=== PATIENT | female | born 1990 ===

== ENCOUNTER 2017-06-12 12:16 | Emergency (ER) | payer SELFPAY ==
[2017-06-12 12:36] VITALS: TEMP 98.5
--- NOTE | 2017-06-12 13:03 | C.PDOC ---
History Of Present Illness 27yo female, presents to ED for evaluation of non-productive cough with associated fever ( TM measurement of 38 C), right sided pleuritic pain for the past 4 days. Patient denies a history of asthma or smoking. She denies any shortness of breath, dyspnea upon exertion. She denies any other associated symptoms. 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 DENIES HO ASTHMA, SMOKING. NO SOB, SALINAS. NO OTHER ASSOC SX EXAM MILD DIST NONTOXIC HEENT NEG LUNGS OCC EXP WHEEZE R MID LUNG NO RHONCHI, RALES. NO TACHYPNEA, RETRACTIONS REMAINDER NEG Time Seen by Provider: 06/12/17 12:43 Chief Complaint (Nursing): Flu-like Symptoms History Per: Patient History/Exam Limitations: no limitations Onset/Duration Of Symptoms: Days (4) Current Symptoms Are (Timing): Still Present Associated Symptoms: Cough. denies: Sputum Past Medical History Reviewed: Historical Data, Nursing Documentation, Vital Signs Vital Signs: Last Vital Signs Temp 98.5 F 06/12/17 12:32 Pulse 102 H 06/12/17 12:32 Resp 18 06/12/17 12:32 BP 119/78 06/12/17 12:32 Pulse Ox 98 06/12/17 13:04 - Medical History PMH: No Chronic Diseases Denies: Asthma Surgical History: No Surg Hx Family History: States: No Known Family Hx - Social History Hx Alcohol Use: No Hx Substance Use: No - Immunization History Hx Tetanus Toxoid Vaccination: No Hx Influenza Vaccination: No Hx Pneumococcal Vaccination: No Review Of Systems Except As Marked, All Systems Reviewed And Found Negative. Constitutional: Negative for: Fever, Chills Respiratory: Positive for: Cough, Other (right sided pleuritic pain). Negative for: Shortness of Breath, SOB with Excertion, Sputum Physical Exam - Physical Exam Appears: Other (mild distress) Skin: Normal Color Head: Atraumatic, Normacephalic Eye(s): bilateral: Normal Inspection Ear(s): Bilateral: Normal Nose: Normal Oral Mucosa: Moist Neck: Supple Cardiovascular: Rhythm Regular Respiratory: No Rales, No Rhonchi, Wheezing (occasional expitory wheezing right mid lung), Other (no tachypnea or retractions noted) Gastrointestinal/Abdominal: Normal Exam Neurological/Psych: Oriented x3, Normal Speech, Normal Cognition ED Course And Treatment O2 Sat by Pulse Oximetry: 98 Pulse Ox Interpretation: Normal - Radiology CXR: Interpreted by Me CXR Interpretation: Yes: Infiltrates (?R PERIHIL) Disposition Counseled Patient/Family Regarding: Studies Performed, Diagnosis, Need For Followup, Rx Given - Disposition Referrals: [facility] [Outside] [facility] [Outside] Disposition: HOME/ ROUTINE Disposition Time: 13:03 Condition: GOOD Prescriptions: Azithromycin 250 mg PO DAILY #6 tab Benzonatate [Tessalon Perles] 200 mg PO TID PRN #15 sgl PRN Reason: Cough Ibuprofen [Motrin] 600 mg PO Q6 #30 tab Instructions: Acute Bronchitis (ED) Forms: [employer] Connect (Azeri), Work Excuse Print Language: MAORI - Clinical Impression Clinical Impression: Bronchitis - Scribe Statement The provider has reviewed the documentation as recorded by the Sekou Rose Provider Attestation: All medical record entries made by the Sekou were at my direction and personally dictated by me. I have reviewed the chart and agree that the record accurately reflects my personal performance of the history, physical exam, medical decision making, and the department course for this patient. I have also personally directed, reviewed, and agree with the discharge instructions and disposition.
--- NOTE | 2017-06-12 13:04 | RAD ---
HISTORY: COUGH COMPARISON: No prior. TECHNIQUE: Chest PA and lateral FINDINGS: LUNGS: Medial right lower lobe infiltrate or atelectasis. Right perihilar prominence. Please note that chest x-ray has limited sensitivity for the detection of pulmonary masses. PLEURA: No significant pleural effusion identified. No definite pneumothorax . CARDIOVASCULAR: The cardiomediastinal silhouette appears within normal limits of size. OSSEOUS STRUCTURES: No acute osseous abnormality identified. VISUALIZED UPPER ABDOMEN: Unremarkable. OTHER FINDINGS: None. IMPRESSION: Medial right lower lobe infiltrate or atelectasis. Right perihilar prominence. Correlate clinically. Recommend follow-up chest x-ray on resolution of treatment for acute symptoms.
[2017-06-12 13:22] VITALS: BP 110/70; PULSE 89; RESP 20; O2SAT 99
== END 2017-06-12 13:23 | disposition home or self-care (01) ==
LOC: C.ER 12:16
DX: J40 Bronchitis, not specified as acute or chronic (principal)

== ENCOUNTER 2018-02-05 16:32 | Emergency (ER) | payer MEDICAID, OTHER ==
[2018-02-05 16:49] VITALS: BMI 23.1
[2018-02-05 16:56] VITALS: BP 105/70; PULSE 89; TEMP 99; O2SAT 100
[2018-02-05] MEDS ORDERED: Albuterol-Ipratrop 3 mg / 0.5 (3 ml) UD ONE (16:57)
--- NOTE | 2018-02-05 17:11 | C.PDOC ---
History Of Present Illness 27-year-old female presents to the ED for evaluation of cough, congestion and runny nose which began 3 days ago. Patient reports feeling chest tightness and short of breath today. Patient has history of asthma, but states she has not had flare ups in years. As per triage, patient was wheezing upon ED arrival and was given Duoneb prior to my evaluation. Patient denies fever, chills, chest pain. Time Seen by Provider: 02/05/18 17:00 Chief Complaint (Nursing): Shortness Of Breath History Per: Patient History/Exam Limitations: no limitations Onset/Duration Of Symptoms: Days (3) Current Symptoms Are (Timing): Still Present Associated Symptoms: Cough, Other (runny nose ). denies: Fever, Chills Additional History Per: Patient Past Medical History Reviewed: Historical Data, Nursing Documentation, Vital Signs Vital Signs: Last Vital Signs Temp 99.0 F 02/05/18 16:50 Pulse 89 02/05/18 16:50 Resp 20 02/05/18 17:13 BP 105/70 02/05/18 16:50 Pulse Ox 100 02/05/18 20:04 - Medical History PMH: Asthma Surgical History: No Surg Hx Family History: States: Unknown Family Hx - Social History Hx Alcohol Use: No Hx Substance Use: No - Immunization History Hx Tetanus Toxoid Vaccination: No Hx Influenza Vaccination: No Hx Pneumococcal Vaccination: No Review Of Systems Constitutional: Negative for: Fever, Chills ENT: Positive for: Nose Discharge Respiratory: Positive for: Cough, Shortness of Breath, Other (congestion, chest tightness ) Physical Exam - Physical Exam Appears: Non-toxic, No Acute Distress Skin: Normal Color, Warm, Dry Head: Atraumatic, Normacephalic Eye(s): bilateral: Normal Inspection Oral Mucosa: Moist Neck: Supple Chest: Symmetrical, No Deformity, No Tenderness Cardiovascular: Rhythm Regular, No Murmur Respiratory: Normal Breath Sounds, No Rales, No Rhonchi, No Wheezing Extremity: Normal ROM, Capillary Refill (less than 2 seconds ) Neurological/Psych: Oriented x3, Normal Speech, Normal Cognition ED Course And Treatment O2 Sat by Pulse Oximetry: 100 (on RA) Pulse Ox Interpretation: Normal Medical Decision Making Medical Decision Making: Impression: 27 year old female with cough, congestion, runny nose, chest tightness, shortness of breath Plan: * prednisone PO * reassess and disposition Progress: Patient was found to be wheezing upon ED arrival and was given Duoneb treatment prior to my evaluation. Patient has clear breath sounds with no wheezing and was in no acute distress during my physical examination. Prednisone PO administered. On re-examination, patient is resting comfortably, showing no signs of respiratory distress and is stable for discharge. Patient is advised to follow up with her PMD within 1-2 days for further evaluation and/or return to the ED if symptoms persist or worsen. Disposition Counseled Patient/Family Regarding: Diagnosis, Need For Followup, Rx Given - Disposition Disposition: HOME/ ROUTINE Disposition Time: 17:10 Condition: GOOD Additional Instructions: You have viral upper respiratory infection. Take Tylenol or Motrin alternating every 4-6 hours for Fever 100.4F or higher. Rest and drink plenty of fluids. May use cool mist humidifier or vaporizer in room. Try taking over the counter antihistamine (Claritin, Aure, Zyrtec), Decongestant or Cough medicine ( Mucinex) as needed every 6-8 hours. Follow up with your primary medical doctor or clinic in 1 week for further evaluation. 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 - Scribe Statement The provider has reviewed the documentation as recorded by the Scribe (Krystin Jaimes) All medical record entries made by the Scribe were at my direction and personally dictated by me. I have reviewed the chart and agree that the record accurately reflects my personal performance of the history, physical exam, medical decision making, and the department course for this patient. I have also personally directed, reviewed, and agree with the discharge instructions and disposition.
[2018-02-05 17:15] VITALS: RESP 20
== END 2018-02-05 17:28 | disposition home or self-care (01) ==
LOC: C.ER 16:32
DX: J98.01 Acute bronchospasm (principal); J06.9 Acute upper respiratory infection, unspecified

== ENCOUNTER 2018-03-17 10:38 | Emergency (ER) | payer MEDICAID, OTHER, SELFPAY ==
[2018-03-17 10:38] VITALS: BMI 23.1
[2018-03-17 10:48] VITALS: BP 111/76; PULSE 64; RESP 18; TEMP 98.4; O2SAT 99
--- NOTE | 2018-03-17 11:06 | C.PDOC ---
History Of Present Illness 28 y/o female presents to ED with c/o sore throat for 1 week and right ear pain for 1 month. Patient denies cough, fever, chills, ear discharge, nausea, vomiting or headache. Time Seen by Provider: 03/17/18 11:02 Chief Complaint (Nursing): ENT Problem History Per: Patient History/Exam Limitations: None Onset/Duration Of Symptoms: Days Current Symptoms Are (Timing): Still Present Quality (Ear): Pain W/Touch. denies: Discharge Past Medical History Reviewed: Historical Data, Nursing Documentation, Vital Signs Vital Signs: Last Vital Signs Temp 98.4 F 03/17/18 10:46 Pulse 64 03/17/18 10:46 Resp 18 03/17/18 11:12 BP 111/76 03/17/18 10:46 Pulse Ox 99 03/17/18 11:12 - Medical History PMH: Asthma Surgical History: No Surg Hx Family History: States: No Known Family Hx - Social History Hx Alcohol Use: Yes Hx Substance Use: No - Immunization History Hx Tetanus Toxoid Vaccination: No Hx Influenza Vaccination: No Hx Pneumococcal Vaccination: No Review Of Systems Constitutional: Negative for: Fever, Chills ENT: Positive for: Ear Pain, Throat Pain. Negative for: Ear Discharge Cardiovascular: Negative for: Chest Pain Respiratory: Negative for: Cough, Shortness of Breath Gastrointestinal: Negative for: Nausea, Vomiting Skin: Negative for: Rash Physical Exam - Physical Exam Appears: Non-toxic, No Acute Distress Skin: Warm, Dry, No Rash Head: Atraumatic, Normacephalic Eye(s): bilateral: Normal Inspection Ear(s): Bilateral: Normal Oral Mucosa: Moist Throat: Erythema, Exudate, No Drooling, No Mass, Other (Uvula midline) Neck: Supple Cardiovascular: Rhythm Regular Respiratory: Normal Breath Sounds, No Rales, No Rhonchi, No Wheezing Extremity: Normal ROM, Capillary Refill (<2 seconds) Neurological/Psych: Oriented x3, Normal Speech ED Course And Treatment O2 Sat by Pulse Oximetry: 99 (RA) Pulse Ox Interpretation: Normal Medical Decision Making Medical Decision Making: Impression: pharyngitis Patient has no fever, speaking clear sentences, and no intraoral swelling or signs of abscess. Patient stable for discharge and given Rx. Instructed to follow up with clinic. Disposition Counseled Patient/Family Regarding: Diagnosis, Need For Followup, Rx Given - Disposition Referrals: Lydia Recio MD [Staff Provider] - Disposition: HOME/ ROUTINE Disposition Time: 11:04 Condition: STABLE Additional Instructions: Follow up with your primary medical doctor or clinic in 2-5 days for further evaluation. Take medications as prescribed. Return to the emergency department at any time if symptoms persist or worsen. 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 - Scribe Statement The provider has reviewed the documentation as recorded by the Sekou Oropeza All medical record entries made by the Malikibdiandra were at my direction and personally dictated by me. I have reviewed the chart and agree that the record accurately reflects my personal performance of the history, physical exam, medical decision making, and the department course for this patient. I have also personally directed, reviewed, and agree with the discharge instructions and disposition.
== END 2018-03-17 11:12 | disposition home or self-care (01) ==
LOC: C.ER 10:38
DX: J02.9 Acute pharyngitis, unspecified (principal)

== ENCOUNTER 2018-06-02 10:26 | Emergency (ER) | payer MEDICAID, OTHER ==
[2018-06-02 10:27] VITALS: BMI 23.1
[2018-06-02 10:35] VITALS: BP 125/84; PULSE 78; RESP 18; TEMP 97.8; O2SAT 99
[2018-06-02] MEDS ORDERED: Naproxen 550 mg Tab PO STA (11:23)
[2018-06-02 11:38] LABS: HCG,QUALITATIVE URINE NEGATIVE (NEGATIVE)
[2018-06-02 11:41] LABS: SQUAMOUS EPITHIAL 3 /hpf (0-5); URINE BACTERIA RARE (<OCC); URINE BILIRUBIN NEGATIVE (NEGATIVE); URINE BLOOD NEGATIVE (NEGATIVE); URINE CLARITY Clear (Clear); URINE COLOR Straw (YELLOW); URINE GLUCOSE (UA) NORMAL (Normal); URINE LEUKOCYTE ESTERASE NEG Leu/uL (Negative); URINE PROTEIN NEGATIVE (NEGATIVE); URINE UROBILINOGEN NORMAL mg/dL (0.2-1.0)
[2018-06-02] MEDS ORDERED: Naproxen 550 mg Tab PO ONE (11:44)
--- NOTE | 2018-06-02 12:08 | C.PDOC ---
History Of Present Illness 28 y/o female presents to the ER complaining of right-sided lower back pain which has been present for the past 3 days. Patient states that the pain radiates down the right thigh. Patient reports that the pain is worse with standing and movement. 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 Denies having trauma, weakness, numbness, bladder/bowel incontinence, and abdominal pain. Time Seen by Provider: 06/02/18 11:09 Chief Complaint (Nursing): Back Pain History Per: Patient History/Exam Limitations: no limitations Onset/Duration Of Symptoms: Days Current Symptoms Are (Timing): Still Present Severity: Moderate Past Medical History Reviewed: Historical Data, Nursing Documentation, Vital Signs Vital Signs: Last Vital Signs Temp 97.8 F 06/02/18 10:32 Pulse 78 06/02/18 10:32 Resp 18 06/02/18 10:32 BP 125/84 06/02/18 10:32 Pulse Ox 99 06/02/18 10:32 - Medical History PMH: Asthma Other Surgeries: Hx of surgeries Family History: States: No Known Family Hx - Social History Hx Alcohol Use: Yes Hx Substance Use: No - Immunization History Hx Tetanus Toxoid Vaccination: No Hx Influenza Vaccination: No Hx Pneumococcal Vaccination: No Review Of Systems Except As Marked, All Systems Reviewed And Found Negative. Gastrointestinal: Negative for: Abdominal Pain Genitourinary: Negative for: Incontinence Musculoskeletal: Positive for: Back Pain (right sided lower back pain) Neurological: Negative for: Weakness, Numbness Physical Exam - Physical Exam Appears: Non-toxic, No Acute Distress Skin: Normal Color, Warm, Dry Head: Atraumatic, Normacephalic Eye(s): bilateral: Normal Inspection Nose: Normal Oral Mucosa: Moist Neck: Supple Chest: Symmetrical Cardiovascular: Rhythm Regular Respiratory: Normal Breath Sounds, No Rales, No Rhonchi, No Wheezing Back: Paraspinal Tenderness (mild right sided paralumbar tenderness), Straight Leg Raising (positive straight leg raising) Extremity: Normal ROM, No Tenderness, No Swelling Neurological/Psych: Oriented x3, Normal Speech ED Course And Treatment O2 Sat by Pulse Oximetry: 99 (RA) Pulse Ox Interpretation: Normal Medical Decision Making Medical Decision Making: Plan: --Prednisone PO --Naproxen PO --HCG, Qual. --UA On re-exam, the patient improvement of symptoms. Lungs are CTA, heart is RRR, abdomen is soft, non-tender and tolerating PO well. Disposition - Disposition Referrals: Tevin Singh MD [Non-Staff] - Disposition: HOME/ ROUTINE Disposition Time: 12:06 Condition: STABLE Additional Instructions: Follow up with the medical doctor within 1-2 days, Return if worsened. 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 - Scribe Statement The provider has reviewed the documentation as recorded by the Sekou Saavedra Provider Attestation All medical record entries made by the Malikibdiandra were at my direction and personally dictated by me. I have reviewed the chart and agree that the record accurately reflects my personal performance of the history, physical exam, medical decision making, and the department course for this patient. I have also personally directed, reviewed, and agree with the discharge instructions and disposition.
== END 2018-06-02 12:14 | disposition home or self-care (01) ==
LOC: C.ER 10:26
DX: M54.5 Low back pain (principal)

== ENCOUNTER 2018-09-18 09:46 | Emergency (ER) | payer OTHER ==
[2018-09-18 09:46] VITALS: BMI 23.1
[2018-09-18 09:49] VITALS: BP 105/70; PULSE 96; TEMP 99.7; O2SAT 99
[2018-09-18 10:40] VITALS: RESP 18
--- NOTE | 2018-09-18 13:46 | C.PDOC ---
History Of Present Illness 28 y/o female presents to the ER complaining of subjective fever, dry cough, and body aches which have been present for the past 2 days. Patient states that she did not receive the flu vaccination this year.Denies having nausea, vomiting, and abdominal pain. Time Seen by Provider: 09/18/18 10:07 Chief Complaint (Nursing): Cough, Cold, Congestion History Per: Patient History/Exam Limitations: no limitations Onset/Duration Of Symptoms: Days Current Symptoms Are (Timing): Still Present Severity: Moderate Past Medical History Reviewed: Historical Data, Nursing Documentation, Vital Signs Vital Signs: Last Vital Signs Temp 99.7 F H 09/18/18 09:47 Pulse 96 H 09/18/18 09:47 Resp 18 09/18/18 10:39 BP 105/70 09/18/18 09:47 Pulse Ox 99 09/18/18 09:47 - Medical History PMH: Asthma Other Surgeries: Hx of surgeries Family History: States: No Known Family Hx - Social History Hx Alcohol Use: Yes Hx Substance Use: No - Immunization History Hx Tetanus Toxoid Vaccination: No Hx Influenza Vaccination: No Hx Pneumococcal Vaccination: No Review Of Systems Except As Marked, All Systems Reviewed And Found Negative. Constitutional: Positive for: Fever (subjective fever), Malaise. Negative for: Chills Respiratory: Positive for: Cough (dry cough) Gastrointestinal: Negative for: Nausea, Vomiting, Abdominal Pain Physical Exam - Physical Exam Appears: Non-toxic, No Acute Distress Skin: Normal Color, Warm, Dry Head: Atraumatic, Normacephalic Eye(s): bilateral: Normal Inspection Ear(s): Bilateral: Normal Nose: Normal Oral Mucosa: Moist Throat: Normal, No Erythema, No Exudate Neck: Supple Chest: Symmetrical Cardiovascular: Rhythm Regular Respiratory: Normal Breath Sounds, No Rales, No Rhonchi, No Wheezing Neurological/Psych: Oriented x3, Normal Speech ED Course And Treatment O2 Sat by Pulse Oximetry: 99 (RA) Pulse Ox Interpretation: Normal Disposition - [facility] - Disposition: HOME/ ROUTINE Disposition Time: 10:30 Condition: GOOD Additional Instructions: ABDIAZIZ MARTE, thank you for letting us take care of you today. Your provider was Justus Worrell DO and you were treated for COUGHING/CONGESTION. The emergency medical care you received today was directed at your acute symptoms. If you were prescribed any medication, please fill it and take as directed. It may take several days for your symptoms to resolve. Return to the Emergency Department if your symptoms worsen, do not improve, or if you have any other problems. Please contact your doctor or call one of the physicians/clinics you have been referred to that are listed on the Patient Visit Information form that is included in your discharge packet. Bring any paperwork you were given at discharge with you along with any medications you are taking to your follow up visit. Our treatment cannot replace ongoing medical care by a primary care provider outside of the emergency department. Thank you for allowing the [facility] team to be part of your care today. Drink plenty of fluids. Follow up with your primary care doctor early next week for re-evaluation and further management. Prescriptions: Ibuprofen [Motrin] 600 mg PO Q6 PRN #20 tab PRN Reason: Pain, Moderate (4-7) Oseltamivir Phosphate [Tamiflu] 75 mg PO BID #10 capsule Instructions: Viral Syndrome (DC) Forms: [employer] (Urdu), Work Excuse - Clinical Impression Clinical Impression: Influenza-like illness - Scribe Statement The provider has reviewed the documentation as recorded by the Malikibe Armando Saavedra Provider Attestation: All medical record entries made by the Scribe were at my direction and personally dictated by me. I have reviewed the chart and agree that the record accurately reflects my personal performance of the history, physical exam, medical decision making, and the department course for this patient. I have also personally directed, reviewed, and agree with the discharge instructions and disposition.
== END 2018-09-18 10:40 | disposition home or self-care (01) ==
LOC: C.ER 09:46
DX: J11.1 Influenza due to unidentified influenza virus with other respiratory manifestations (principal)